=== PATIENT | female | born 1955 | race Caucasian/White ===

== ENCOUNTER → 2016-12-13 | Outpatient (CLI) | payer BC ==
--- NOTE | 2016-12-14 09:08 | MAMMOGRAPHY REPORT ---
BILATERAL DIGITAL SCREENING MAMMOGRAM TOMOSYNTHESIS WITH CAD: 12/13/2016 CLINICAL HISTORY: Routine screening. Patient has no complaints. TECHNIQUE: Breast tomosynthesis in addition to standard 2D mammography was performed. Current study was also evaluated with a Computer Aided Detection (CAD) system. COMPARISON: Comparison is made to exams dated: 10/06/2015 mammogram, 07/05/2012 mammogram, 12/22/2009 m ammogram, 05/10/2006 mammogram, and 12/10/2000 mammogram - [facility]. BREAST COMPOSITION: The tissue of both breasts is heterogeneously dense, which may obscure small mas ses. FINDINGS: The parenchymal pattern is similar to prior exams. There are a few benign-appearing micro calcifications and minimal vascular calcification in the breasts. No developing mass, architectural distortion or cluster of suspicious microcalcifications is seen in either breast. IMPRESSION: ACR BI-RADS CATEGORY 2: BENIGN There is no mammographic evidence of malignancy. A 1 year screening mammogram is recommended. The pa tient will receive written notification of the results. Approximately 10% of breast cancers are not detected with mammography. A negative mammographic report should not delay biopsy if a clinically suggestive mass is present. Katherine Walker M.D. ay/:12/13/2016 17:38:04 Steward/Stewardess Lounge: Lilia Jeter, [facility] letter sent: Normal 1/2 BI-RADS Code: ACR BI-RADS Category 2: Benign
== END | disposition home or self-care (01) ==
LOC: C.MAMM 16:35
PROVIDERS: ATTEND Family Medicine
DX: Z12.31 Encounter for screening mammogram for malignant neoplasm of breast (principal)

== ENCOUNTER 2017-11-10 03:10 | Inpatient (IN) | payer BC, OTHER ==
[~2017-11-10] VITALS: Ht 165.1 cm; Wt 72.2 kg
[2017-11-10] VITALS (10 sets, daily range): BP systolic 112–153; BP diastolic 66–82; PULSE 83–103; TEMP 36.7–37.2; O2SAT 91–98; BMI 25.1
[2017-11-10] MEDS ORDERED: SODIUM CHLORIDE 0.9% 1000ML 1,000 ML IV STA (03:12)
[2017-11-10 03:34] LABS: EOS % 0.5 %; EOS ABS # 0.03 K/uL (0-0.5); HEMATOCRIT 37.5 % (37-47); HEMOGLOBIN 13.2 g/dL (12.0-16.0); IG# 0.01 K/uL (0.00-0.02); LYMPH % 11.1 %; LYMPH ABS # 0.68 K/uL (1.2-3.4); MEAN CELL VOLUME 92.8 fL (80-100); MEAN CORPUSCULAR HEMOGLOBIN 32.7 pg (25-34); MEAN CORPUSCULAR HGB CONC 35.2 g/dl (32-36); MEAN PLATELET VOLUME 9.6 fL (7.4-10.4); MONO % 2.6 %; MONO ABS # 0.16 K/uL (0.11-0.59); NEUT % 85.6 %; NEUT ABS # 5.25 K/uL (1.4-6.5); PLATELET COUNT 206 K/uL (130-400); RED CELL DISTRIBUTION WIDTH CV 12.5 % (11.5-14.5); RED CELL DISTRIBUTION WIDTH SD 42.4 fL (36.4-46.3); WHITE BLOOD COUNT 6.13 K/uL (4.8-10.8)
[2017-11-10 04:34] LABS: ALBUMIN 3.4 gm/dl (3.4-5.0); ALKALINE PHOSPHATASE 64 U/L (45-117); ALT/SGPT 32 U/L (12-78); AST/SGOT 24 U/L (15-37); BLOOD UREA NITROGEN 9 mg/dl (7-18); CALCIUM 8.5 mg/dl (8.5-10.1); CARBON DIOXIDE 20 mmol/L (21-32); CREATININE 0.71 mg/dl (0.60-1.20); GLUCOSE 107 mg/dl (70-99); LIPASE 247 U/L (73-393); POTASSIUM 3.1 mmol/L (3.5-5.1); SODIUM 133 mmol/L (136-145); TOTAL PROTEIN 6.9 gm/dl (6.4-8.2)
[2017-11-10] MEDS ORDERED: POTASSIUM CHLORIDE 10 MEQ TABCR PO STA (04:47)
[2017-11-10] MEDS ORDERED: MAGNESIUM SULFATE 1GM / D5W 1 GM BAG IV STA (04:47)
[2017-11-10] MEDS ORDERED: NURSING VERBAL MED ORDER ONE ×4 (05:15→14:30)
[2017-11-10] MEDS ORDERED: MoRPHine SULFATE 4 MG/ML 1 ML CARP\\VIAL ONE (05:16)
[2017-11-10] MEDS ORDERED: MoRPHine SULFATE 4 MG/ML 1 ML CARP\\VIAL IV STA (06:16)
[2017-11-10] MEDS ORDERED: ZOLPIDEM TARTRATE 5 MG TAB PO PRN (06:30)
[2017-11-10] MEDS ORDERED: ACETAMINOPHEN 325 MG TAB PO PRN (06:30)
--- NOTE | 2017-11-10 06:37 | History and Physical ---
History & Physical Date & Time of Service: November 10, 2017 at 06:31 Chief Complaint: Abdominal Pain Primary Care Physician: No Doctor, Assigned History of Present Illness Source: patient The patient is a 62 year old female who presented to ED with complaints of sudden onset of right lower quadrant pain. The pain did not radiate and was improved after morphine injection. She was sitting in bed when the pain began without nausea or vomiting. Never had a colonoscopy. She denies chest pain, dyspnea, fever, chills, vomiting, diarrhea, back pain, flank pain, urinary symptoms, vaginal itching or discharge. No problems with her bowels. No history of kidney stones. No drug use. Patient does not see a doctor on a regular basis. A CT scan shows a likely cecal volvulus. Past Medical/Surgical History Medical Problems: (1) Cecal volvulus Social History Smoking Status: Never Smoker Smokeless Tobacco Use: No Alcohol Use: socially Drug Use: none Occupational Status: employed Allergies Coded Allergies: No Known Allergies (Unverified , 11/10/17) Home Medications No Active Prescriptions or Reported Meds Review of Systems Constitutional: No fever, No chills, No sweats, No weight loss, No fatigue Eyes: No worsening of vision, No redness, No diplopia ENT: No hearing loss, No sore throat, No trouble swallowing Respiratory: No cough, No sputum, No shortness of breath Cardiovascular: No chest pain, No edema, No palpitations Abdomen: + pain, No nausea, No vomiting, No diarrhea, No constipation Musculoskeletal: No joint pain, No muscle pain, No swelling, No calf pain Genitourinary - Female: No dysuria Neurologic: No memory loss, No numbness/tingling, No balance problems Psychiatric: No depression symptoms, No anxiety Endocrine: No fatigue, No excessive urination Hematologic / Lymphatic: No abnormal bleeding/bruising, No swollen lymph nodes Integumentary: No rash, No new/changing skin lesions, No bleeding Allergic / Immunologic: No environmental allergies, No food allergies Physical Exam Vital Signs Date Time Temp Pulse Resp B/P (MAP) Pulse Ox O2 Delivery O2 Flow Rate FiO2 11/10/17 05:12 88 22 93 Room Air 11/10/17 05:07 131/71 11/10/17 04:05 75 19 96 Room Air 11/10/17 04:01 85 24 124/73 98 Room Air 11/10/17 03:50 86 18 11/10/17 03:45 80 19 11/10/17 03:40 83 21 11/10/17 03:40 85 11/10/17 03:27 Room Air 11/10/17 03:27 37.2 82 16 141/80 100 Room Air 11/10/17 03:16 141/80 98 Room Air General Appearance: WD/WN, no apparent distress Head: normocephalic, atraumatic Eyes: normal inspection, PERRL, EOMI, sclerae normal ENT: normal ENT inspection Neck: supple, no adenopathy, trachea midline Respiratory/Chest: chest non-tender, lungs clear Cardiovascular: regular rate, rhythm, no gallop, no murmur Abdomen/GI: normal bowel sounds, soft, + tenderness, + distended Genitourinary - Female: external genitalia normal Back: normal inspection, no CVA tenderness, normal range of motion Extremities/Musculoskelatal: normal inspection, no pedal edema, non-tender Neurologic/Psych: no motor/sensory deficits, alert, oriented x 3 Skin: normal color, warm/dry, no rash Lymphatic: no adenopathy Diagnostics Laboratory Results Results Past 24 Hours Test 11/10/17 03:29 11/10/17 03:30 11/10/17 03:40 11/10/17 05:35 Range/Units Ethyl Alcohol mg/dL 101.0 0-3 mg/dl White Blood Count 6.13 4.8-10.8 K/uL Red Blood Count 4.04 4.2-5.4 M/uL Hemoglobin 13.2 12.0-16.0 g/dL Hematocrit 37.5 37-47 % Mean Corpuscular Volume 92.8 80-100 fL Mean Corpuscular Hemoglobin 32.7 25-34 pg Mean Corpuscular Hemoglobin Concent 35.2 32-36 g/dl Platelet Count 206 130-400 K/uL Mean Platelet Volume 9.6 7.4-10.4 fL Neutrophils (%) (Auto) 85.6 % Lymphocytes (%) (Auto) 11.1 % Monocytes (%) (Auto) 2.6 % Eosinophils (%) (Auto) 0.5 % Basophils (%) (Auto) 0.0 % Neutrophils # (Auto) 5.25 1.4-6.5 K/uL Lymphocytes # (Auto) 0.68 1.2-3.4 K/uL Monocytes # (Auto) 0.16 0.11-0.59 K/uL Eosinophils # (Auto) 0.03 0-0.5 K/uL Basophils # (Auto) 0.00 0-0.2 K/uL RDW Standard Deviation 42.4 36.4-46.3 fL RDW Coefficient of Variation 12.5 11.5-14.5 % Immature Granulocyte % (Auto) 0.2 % Immature Granulocyte # (Auto) 0.01 0.00-0.02 K/uL Sodium Level 133 136-145 mmol/L Potassium Level 3.1 3.5-5.1 mmol/L Chloride Level 101 98-107 mmol/L Carbon Dioxide Level 20 21-32 mmol/L Anion Gap 12.0 3-11 mmol/L Blood Urea Nitrogen 9 7-18 mg/dl Creatinine 0.71 0.60-1.20 mg/dl Est Creatinine Clear Calc Drug Dose 79.7 ml/min Estimated GFR () 104.3 Estimated GFR (Non- 90.0 BUN/Creatinine Ratio 13.3 10-20 Random Glucose 107 70-99 mg/dl Calcium Level 8.5 8.5-10.1 mg/dl Magnesium Level 1.6 1.8-2.4 mg/dl Total Bilirubin 0.2 0.2-1 mg/dl Direct Bilirubin < 0.1 0-0.2 mg/dl Aspartate Amino Transf (AST/SGOT) 24 15-37 U/L Alanine Aminotransferase (ALT/SGPT) 32 12-78 U/L Alkaline Phosphatase 64 45-117 U/L Total Protein 6.9 6.4-8.2 gm/dl Albumin 3.4 3.4-5.0 gm/dl Lipase 247 73-393 U/L Urine Color YELLOW Urine Appearance CLEAR CLEAR Urine pH 5.5 4.5-7.5 Urine Specific [place] 1.015 1.000-1.030 Urine Protein NEG NEG Urine Glucose (UA) NEG NEG Urine Ketones TRACE NEG Urine Occult Blood 1+ NEG Urine Nitrite NEG NEG Urine Bilirubin NEG NEG Urine Urobilinogen NEG NEG Urine Leukocyte Esterase NEG NEG Urine WBC (Auto) 1-5 0-5 /hpf Urine RBC (Auto) 0-4 0-4 /hpf Urine Hyaline Casts (Auto) 1-5 0-5 /lpf Urine Epithelial Cells (Auto) 5-10 0-5 /lpf Urine Bacteria (Auto) NEG NEG Bedside Lactic Acid Venous 1.72 0.90-1.70 mmol/L Impression Assessment and Plan Cecal volvulus -IVF -IV abx -to OR for right colectomy SCDs Protonix ASA Classification: ASA Class II Resuscitation Status VTE Prophylaxis Will order VTE Prophylaxis: Yes Social Service Consult None Apply
--- NOTE | 2017-11-10 06:42 | EMERGENCY ROOM VISIT NOTE ---
History First contact with patient: 03:12 Chief Complaint: ABDOMINAL PAIN Stated Complaint: ABDOMINAL PAIN Nursing Triage Summary: woke with severe, sudden onset abd pain, resolved after medic admin morphine. no pmhx History of Present Illness The patient is a 62 year old female who presents to the Emergency Room with complaints of sudden onset of right lower quadrant pain described as severe, 8 out of 10 that is now resolved after receiving 8 of morphine IV and 4 Zofran by EMS in route. Pain did not radiate. Patient states she was sitting in bed when the symptoms started. Patient states she has had 4 beers tonight. No history of similar symptoms in the past. No colonoscopy. Patient denies chest pain, dyspnea, fever, chills, vomiting, diarrhea, back pain, flank pain, urinary symptoms, vaginal itching or discharge. No problems with her bowels. No history of kidney stones. No drug use. Patient does not see a doctor on a regular basis. Review of Systems An 10 system review of systems was completed with positives and pertinent negatives listed in the HPI. Past Medical/Surgical History Medical Problems: (1) Cecal volvulus C section Social History Smoking Status: Never Smoker Smokeless Tobacco Use: No Alcohol Use: occasionally Drug Use: none Occupation Status: employed Current/Historical Medications No Active Prescriptions or Reported Meds Physical Exam Vital Signs Date Time Temp Pulse Resp B/P (MAP) Pulse Ox O2 Delivery O2 Flow Rate FiO2 11/10/17 06:35 88 16 114/68 95 Room Air 11/10/17 05:12 88 22 93 Room Air 11/10/17 05:07 131/71 11/10/17 04:05 75 19 96 Room Air 11/10/17 04:01 85 24 124/73 98 Room Air 11/10/17 03:50 86 18 11/10/17 03:45 80 19 11/10/17 03:40 83 21 11/10/17 03:40 85 11/10/17 03:27 Room Air 11/10/17 03:27 37.2 82 16 141/80 100 Room Air 11/10/17 03:16 141/80 98 Room Air Physical Exam VITALS: Vitals are noted on the nurse's note and reviewed by myself. Vital signs hypertensive. GENERAL: Pleasant female, in no acute distress, nondiaphoretic, well-developed well-nourished. SKIN: The skin was without rashes, erythema, edema, or bruising. There is no tenting of the skin. Capillary reflex less than 2 seconds. HEAD: Normocephalic atraumatic. EARS: External auditory canals clear, tympanic membranes pearly culp without erythema or effusion bilaterally. EYES: Pupils equal round and reactive to light and accommodation. Conjunctivae without injection, sclerae without icterus. Extraocular movements intact. NOSE: Patent, turbinates without inflammation or discharge. MOUTH: Mucous membranes moist. Pharynx without erythema or exudate. Uvula midline. Airway patent. Tongue does not deviate. NECK: Supple without nuchal rigidity. No lymphadenopathy. No thyromegaly. Cervical spine is nontender. No JVD. HEART: Regular rate and rhythm without murmurs gallops or rubs. LUNGS: Clear to auscultation bilaterally without wheezes, rales or rhonchi. No retractions or accessory muscle use. ABDOMEN: Positive bowel sounds x 4. Normal tympanic percussion. Soft, tender to palpation right lower quadrant, without masses or organomegaly. Lowery sign negative. No guarding or rebound tenderness. No CVA tenderness MUSCULOSKELETAL: No muscle atrophy, erythema, or edema noted. NEURO: Patient was alert and oriented to person place and time. Normal sensation to light and sharp touch. No focal neurological deficits. Medical Decision & Procedures Laboratory Results 11/10/17 03:30 Red Blood Count 4.04, Mean Corpuscular Volume 92.8, Mean Corpuscular Hemoglobin 32.7, Mean Corpuscular Hemoglobin Concent 35.2, Mean Platelet Volume 9.6, Neutrophils (%) (Auto) 85.6, Lymphocytes (%) (Auto) 11.1, Monocytes (%) (Auto) 2.6, Eosinophils (%) (Auto) 0.5, Basophils (%) (Auto) 0.0, Neutrophils # (Auto) 5.25, Lymphocytes # (Auto) 0.68, Monocytes # (Auto) 0.16, Eosinophils # (Auto) 0.03, Basophils # (Auto) 0.00 11/10/17 03:30 Test 11/10/17 03:29 11/10/17 03:30 11/10/17 03:40 11/10/17 05:35 Ethyl Alcohol mg/dL 101.0 mg/dl (0-3) White Blood Count 6.13 K/uL (4.8-10.8) Red Blood Count 4.04 M/uL (4.2-5.4) Hemoglobin 13.2 g/dL (12.0-16.0) Hematocrit 37.5 % (37-47) Mean Corpuscular Volume 92.8 fL (80-100) Mean Corpuscular Hemoglobin 32.7 pg (25-34) Mean Corpuscular Hemoglobin Concent 35.2 g/dl (32-36) Platelet Count 206 K/uL (130-400) Mean Platelet Volume 9.6 fL (7.4-10.4) Neutrophils (%) (Auto) 85.6 % Lymphocytes (%) (Auto) 11.1 % Monocytes (%) (Auto) 2.6 % Eosinophils (%) (Auto) 0.5 % Basophils (%) (Auto) 0.0 % Neutrophils # (Auto) 5.25 K/uL (1.4-6.5) Lymphocytes # (Auto) 0.68 K/uL (1.2-3.4) Monocytes # (Auto) 0.16 K/uL (0.11-0.59) Eosinophils # (Auto) 0.03 K/uL (0-0.5) Basophils # (Auto) 0.00 K/uL (0-0.2) RDW Standard Deviation 42.4 fL (36.4-46.3) RDW Coefficient of Variation 12.5 % (11.5-14.5) Immature Granulocyte % (Auto) 0.2 % Immature Granulocyte # (Auto) 0.01 K/uL (0.00-0.02) Anion Gap 12.0 mmol/L (3-11) Est Creatinine Clear Calc Drug Dose 79.7 ml/min Estimated GFR () 104.3 Estimated GFR (Non- 90.0 BUN/Creatinine Ratio 13.3 (10-20) Calcium Level 8.5 mg/dl (8.5-10.1) Magnesium Level 1.6 mg/dl (1.8-2.4) Total Bilirubin 0.2 mg/dl (0.2-1) Direct Bilirubin < 0.1 mg/dl (0-0.2) Aspartate Amino Transf (AST/SGOT) 24 U/L (15-37) Alanine Aminotransferase (ALT/SGPT) 32 U/L (12-78) Alkaline Phosphatase 64 U/L (45-117) Total Protein 6.9 gm/dl (6.4-8.2) Albumin 3.4 gm/dl (3.4-5.0) Lipase 247 U/L (73-393) Urine Color YELLOW Urine Appearance CLEAR (CLEAR) Urine pH 5.5 (4.5-7.5) Urine Specific [place] 1.015 (1.000-1.030) Urine Protein NEG (NEG) Urine Glucose (UA) NEG (NEG) Urine Ketones TRACE (NEG) Urine Occult Blood 1+ (NEG) Urine Nitrite NEG (NEG) Urine Bilirubin NEG (NEG) Urine Urobilinogen NEG (NEG) Urine Leukocyte Esterase NEG (NEG) Urine WBC (Auto) 1-5 /hpf (0-5) Urine RBC (Auto) 0-4 /hpf (0-4) Urine Hyaline Casts (Auto) 1-5 /lpf (0-5) Urine Epithelial Cells (Auto) 5-10 /lpf (0-5) Urine Bacteria (Auto) NEG (NEG) Bedside Lactic Acid Venous 1.72 mmol/L (0.90-1.70) Medications Administered Medications (Trade) Dose Ordered Sig/Sheila Route Start Time Stop Time Status Last Admin Dose Admin Sodium Chloride 1,000 ml @ 999 mls/hr Q1H1M STAT IV 11/10/17 03:12 11/10/17 04:12 DC 11/10/17 03:35 999 MLS/HR Potassium Chloride (Klor-Con M10) 40 meq NOW STAT PO 11/10/17 04:47 11/10/17 04:48 DC 11/10/17 05:20 40 MEQ Magnesium Sulfate (Magnesium Sulfate 1gm / D5W) 1 gm NOW STAT IV 11/10/17 04:47 11/10/17 04:48 DC 11/10/17 05:21 1 GM Morphine Sulfate (MoRPHine SULFATE INJ) 4 mg STK-MED ONCE .ROUTE 11/10/17 05:16 11/10/17 05:17 DC 11/10/17 05:20 4 MG ED Course Prior records/ancillary studies reviewed. Triage Nursing notes reviewed. Additional history obtained from EMS. The patient's history was concerning for abdominal pain. Differential diagnosis: Etiologies such as appendicitis, diverticulitis, PUD, biliary pathology, UTI, pancreatitis, obstruction, mesenteric ischemia, aortic pathology, infections, inflammatory bowel disease, renal colic, as well as others were entertained. Physical examination findings: As above. ER treatment provided: IV fluids, EMS gave morphine and Zofran On reassessment the patient felt better. Diagnostics interpreted by me: The labs revealed lactic 1.7 No leukocytosis, stable H&H Imaging studies: CT ABDOMEN & PELVIS With Contrast: There are two 6 mm subpleural groundglass nodules in the left lower lobe. Consider follow-up in 6-12 months. Small volume free fluid in the pelvic cul-de-sac.. Ascending colon is significantly dilated with fluid and gas and located in the left abdomen. There is a mesenteric swirl sign in the right lower quadrant. Overall, findings are concerning for cecal volvulus. Recommend surgical consultation. No evidence of pneumoperitoneum or pneumatosis. Radiologist: Eligio Hernandez DO Study ready at 05:08 and initial results transmitted Consultation: A consultation was placed with the surgeon, Dr. Miller. The case was discussed and diagnostics were reviewed. The patient was evaluated in the ER for further treatment. Exam and history seem consistent with cecal volvulus. Patient will be evaluated by surgery. She was placed n.p.o. Patient is agreeable to treatment plan of admission and evaluation by surgery. Patient was afebrile nontoxic. No leukocytosis. She was well-appearing. By the evaluation outlined above emergent etiologies such as appendicitis, diverticulitis, PUD, biliary pathology , UTI, pancreatitis, mesenteric ischemia, aortic pathology, infections, inflammatory bowel disease, renal colic, as well as others were deemed relatively unlikely. The pt informed about the findings as listed above. All questions were answered and pleased with the treatment. Case reviewed with my attending The chart was completed utilizing [employer] Speech voice recognition software. Grammatical errors, random word insertions, pronoun errors, and incomplete sentences are an occassional consequence of this system due to software limitations, ambient noise, and hardware issues. Any formal questions or concerns about the content, text, or information contained within the body of this dictation should be directly addressed to the physician child care assistant for clarification. Medical Decision As above Medication Reconcilliation Current Medication List: was personally reviewed by me Blood Pressure Screening Patient's blood pressure: Elevated blood pressure Blood pressure disposition: Elevated BP felt to be situational Impression Primary Impression: Cecal volvulus Departure Information Dispostion Being Evaluated By Surgeon Condition FAIR Prescriptions No Active Prescriptions or Reported Meds Referrals No Doctor, Assigned (PCP) Patient Instructions [facility]
[2017-11-10] MEDS: ONDANSETRON INJ 2 MG/ML 2 ML VIAL IV PRN (07:52)
[2017-11-10] MEDS ORDERED: MoRPHine SULFATE 4 MG/ML 1 ML CARP\\VIAL IV PRN (08:15)
--- NOTE | 2017-11-10 08:33 | DIAGNOSTIC IMAGING REPORT ---
ABDOMEN AND PELVIS CT WITH IV CONTRAST CT DOSE: 373.61 mGy.cm HISTORY: Right-sided abdominal pain. TECHNIQUE: Multiaxial CT images of the abdomen and pelvis were performed following the use of intravenous contrast. A dose lowering technique was utilized adhering to the principles of ALARA. COMPARISON STUDY: None. FINDINGS: There are 2, 6 mm groundglass nodule seen within the left lower lobe on images 7 and 11. 4 mm subpleural nodule within the right lower lobe on image 7. No pneumoperitoneum. No pneumatosis. No fractures within the visualized osseous structures. The liver, gallbladder, spleen, adrenal glands, pancreas, left kidney are unremarkable. Subcentimeter hypodense lesion within the upper pole the right kidney is too small to characterize. No hydronephrosis. Thickening of the gastric antrum may be due to decompression from the mass effect from the adjacent distended cecum. Normal bladder. Small amount of pelvic fluid. No dilated loops of small bowel identified. The majority of the small and large bowel loops are decompressed. However, the cecum is distended and filled with gas and fluid located within the left side the abdomen. The cecum measures up to 7.8 cm in diameter. There is focal transition point and a whirled sign within the mesenteric fat within the right lower quadrant on images 52 through 55. This is located at the proximal ascending colon and is consistent with a cecal volvulus. IMPRESSION: 1. Above findings consistent with a cecal volvulus. Immediate surgical consultation is recommended for decompression. 2. Small amount of pelvic fluid which may be reactive. 3. There are 2, 6 mm groundglass nodules within the left lung base. Follow-up chest CT in 6 months is recommended to ensure stability/resolution. Electronically signed by: Bruce Dalton M.D. 11/10/2017 8:32 AM Dictated Date/Time: 11/10/2017 8:25 AM
[2017-11-10] MEDS ORDERED: PROPOFOL IV EMULSION 10 MG/ML 20 ML VIAL ONE (09:12)
[2017-11-10] MEDS ORDERED: MIDAZOLAM HCL 1 MG/ML 2ML VIAL ONE (09:12)
[2017-11-10] MEDS ORDERED: DEXAMETHASONE SOD INJ 4 MG/ML VIAL ONE (09:12)
[2017-11-10] MEDS ORDERED: FENTANYL CITRATE INJ 50 MCG/1 ML 2 ML VIAL ONE ×3 (09:12→11:50)
[2017-11-10] MEDS ORDERED: ONDANSETRON INJ 2 MG/ML 2 ML VIAL ONE ×2 (09:12→11:10)
[2017-11-10] MEDS ORDERED: GLYCOPYRROLATE INJ 0.2 MG/ML VIAL ONE ×2 (09:12→10:35)
[2017-11-10] MEDS ORDERED: ROCURONIUM BROMIDE 10 MG/ML 5 ML VIAL ONE (09:12)
[2017-11-10] MEDS ORDERED: LIDOCAINE HCL 2% 2 ML VIAL (20MG/ML) ONE (09:12)
[2017-11-10] MEDS ORDERED: NEOSTIGMINE METHYLSULFATE 5 MG/5 ML SYR ONE (09:12)
[2017-11-10] MEDS: AMPICILLIN/SULBACTAM SOD INJ 3,000 MG in SODIUM CHLORIDE 0.9% 100ML 100 ML IV SCH ×3 (09:16→20:33)
[2017-11-10] MEDS ORDERED: PROMETHAZINE HCL INJ 6.25 MG in SODIUM CHLORIDE 0.9% 50ML 50 ML IV PRN (10:15)
[2017-11-10] MEDS ORDERED: ONDANSETRON INJ 2 MG/ML 2 ML VIAL IV PRN (10:15)
[2017-11-10] MEDS ORDERED: KETOROLAC TROMETHAMINE 30 MG/ML VIAL IV. PRN (10:15)
[2017-11-10] MEDS ORDERED: ATROPINE SULFATE 0.1 MG/ML 5ML SYR IV PRN (10:15)
[2017-11-10] MEDS ORDERED: BACITRACIN 50000 UNIT VIAL ONE (10:37)
[2017-11-10] MEDS: SODIUM CHLORIDE 0.9% 1000ML 1,000 ML IV SCH (10:49)
--- NOTE | 2017-11-10 10:49 | [facility] Post Operative Brief Note ---
Immediate Operative Summary Operative Date November 10, 2017. Pre-Operative Diagnosis Cecal volvulus Post-Operative Diagnosis Cecal volvulus Procedure(s) Performed Exploratory laparotomy with cecum and TI resection Surgeon Dr. Rupert Perez Inker Surgeon(s) None Estimated Blood Loss 50ml Findings Consistent with Post-Op Diagnosis Specimens A: Cecum and terminal ileum Drains None Anesthesia Type General Complication(s) none Disposition Accompanied Pt To Recover: no Disposition: Recovery Room / PACU
[2017-11-10] MEDS ORDERED: NALOXONE HCL 0.4 MG/1 ML VIAL/CARP IV PRN (11:00)
[2017-11-10] MEDS: PANTOprazole INJ 40 MG in SYRINGE 0 ML IV SCH ×2 (11:00→14:17)
[2017-11-10] MEDS ORDERED: HYDROmorphone INJ 2 MG/ML SYR/VIAL ONE ×2 (11:09→12:01)
[2017-11-10] MEDS ORDERED: KETOROLAC TROMETHAMINE 30 MG/ML VIAL ONE (11:09)
[2017-11-10] MEDS: HYDROmorphone INJ 2 MG/ML SYR/VIAL IV PRN ×8 (11:20→12:27)
--- NOTE | 2017-11-10 11:47 | OPERATIVE REPORT ---
DATE OF OPERATION: 11/10/2017 PREOPERATIVE DIAGNOSIS: Cecal volvulus. POSTOPERATIVE DIAGNOSIS: Cecal volvulus. PROCEDURE PERFORMED: Exploratory laparotomy with resection of distal right colon and terminal ileum. ANESTHESIA: General endotracheal. SURGEON: Dr. Rupert Perez. JUNIOR STAFF ACCOUNTANT: None. ESTIMATED BLOOD LOSS: 50 mL FINDINGS: There was a large cecal volvulus with ischemic, but not infarcted cecum. SPECIMEN: Cecum and terminal ileum. DRAINS: None. COMPLICATIONS: None. INDICATION FOR PROCEDURE: This is a 62-year-old female who was seen early this morning in the ER with complaints of acute abdominal pain, which began a few hours earlier. She had a CT scan, which showed obvious cecal volvulus. She had received pain medication, but was lap machine tender on exam and therefore it was recommended that we proceed with exploration and resection of her volvulized cecum. We went over the risks of temporary ostomy, bleeding, wound problems, possible reoperation and she understands all this and wished to proceed. DESCRIPTION OF PROCEDURE: The patient was taken to the OR after she received antibiotics and the sufficient resuscitation. She was hemodynamically stable and was found early in the course of her disease process. She underwent excellent general endotracheal anesthesia. Her abdomen was prepped and draped in normal sterile fashion. Midline incision was made from just below her xiphoid down to around her umbilicus. Dissection was taken down to identify anterior fascia. Fascia was incised in the midline. This was extended superiorly and inferiorly. A Aden retractor was placed. Exploration was done. There was an obvious large dilated cecal volvulus. This was detorsed and laid into the open wound. The bowel itself was not infarcted, but did appear ischemic. Terminal ileum was normal and the distal right colon was also fairly normal caliber. Once this was done, the rest of the abdomen was explored. No other abnormalities were noted. Harmonic scalpel was used to free up the white line of [place] laterally. This helped mobilize the right colon. Once this was done, a ANDREA stapler was used to transect the distal terminal ileum and the distal right colon. Once this was done, the mesentery was taken down between clamps and 0 silk ties. This removed the volvulized cecum and portion of the terminal ileum. This was sent for pathologic evaluation. The colon and the small bowel were then placed side by side. A suture was placed proximally. An enterotomy and a colotomy were made and a ANDREA 80 stapler was placed and [id number] anastomosis was made. There was no spillage of enteric contents. Once this was done, #2 silk sutures were placed on either side of the defect and a ANDREA stapler was placed across the defect closing the defect made between the 2 bowels, which were anastomosed. This staple line was reinforced with interrupted lemberted silk sutures. The window between the bowel was also closed with interrupted silk sutures. There was a good wide patent anastomosis. The abdomen was then irrigated out with saline and suctioned clear. The anastomosis was placed into the abdominal cavity. The omentum was placed over this. A #1 PDS was used to close the skin. The subQ tissues were irrigated with antibiotic irrigation and closed with cheo. Sterile dressing was applied. She had a Wolf and NG tube placed intraoperatively. She tolerated the procedure well without complications, sent to post-recovery for a period of observation and sent to the floor for the rest of her care. I attest to the content of the Intraoperative Record and any orders documented therein. Any exception s are noted below.
[2017-11-10] MEDS ORDERED: FENTANYL CITRATE INJ 50 MCG/1 ML 2 ML VIAL IV PRN (12:15)
--- NOTE | 2017-11-10 12:16 | Anesthesiology Progress Note ---
Anesthesia Post Op Note Date & Time November 10, 2017 at 12:16 Vital Signs Vital Signs Past 12 Hours Date Time Temp Pulse Resp B/P (MAP) Pulse Ox O2 Delivery O2 Flow Rate FiO2 11/10/17 11:02 36.4 78 16 146/79 96 Oxymask 10 11/10/17 07:45 Room Air 11/10/17 07:39 36.7 92 12 127/72 (90) 97 Room Air 11/10/17 07:09 83 16 124/65 94 Room Air 11/10/17 06:35 88 16 114/68 95 Room Air 11/10/17 05:12 88 22 93 Room Air 11/10/17 05:07 131/71 11/10/17 04:05 75 19 96 Room Air 11/10/17 04:01 85 24 124/73 98 Room Air 11/10/17 03:50 86 18 11/10/17 03:45 80 19 11/10/17 03:40 83 21 11/10/17 03:40 85 11/10/17 03:27 Room Air 11/10/17 03:27 37.2 82 16 141/80 100 Room Air 11/10/17 03:16 141/80 98 Room Air Notes Mental Status: alert / awake / arousable, participated in evaluation Pt Amnestic to Procedure: Yes Nausea / Vomiting: adequately controlled Pain: adequately controlled Airway Patency, RR, SpO2: stable & adequate BP & HR: stable & adequate Hydration State: stable & adequate Anesthetic Complications: no major complications apparent
[2017-11-10] MEDS: MoRPHine SULFATE 1 MG/ML 50 ML PCA CASS IV PRN ×3 (12:28→19:00)
[2017-11-10] MEDS: LACTATED RINGER'S 1000ML 1,000 ML IV SCH ×2 (14:14→22:13)
[2017-11-11] MEDS: AMPICILLIN/SULBACTAM SOD INJ 3,000 MG in SODIUM CHLORIDE 0.9% 100ML 100 ML IV SCH ×4 (01:47→20:11)
[2017-11-11] MEDS: ONDANSETRON INJ 2 MG/ML 2 ML VIAL IV PRN ×3 (02:04→16:38)
[2017-11-11 03:34] VITALS: BP 142/79; PULSE 85; TEMP 37.1; O2SAT 95
[2017-11-11] MEDS: LACTATED RINGER'S 1000ML 1,000 ML IV SCH ×3 (06:04→23:11)
[2017-11-11 06:51] LABS: HEMOGLOBIN 11.9 g/dL (12.0-16.0); IG# 0.02 K/uL (0.00-0.02); LYMPH % 3.6 %; LYMPH ABS # 0.35 K/uL (1.2-3.4); MEAN CELL VOLUME 93.4 fL (80-100); MEAN CORPUSCULAR HEMOGLOBIN 32.7 pg (25-34); MEAN PLATELET VOLUME 8.9 fL (7.4-10.4); MONO % 6.5 %; MONO ABS # 0.63 K/uL (0.11-0.59); NEUT % 89.7 %; NEUT ABS # 8.69 K/uL (1.4-6.5); PLATELET COUNT 164 K/uL (130-400); RED CELL DISTRIBUTION WIDTH CV 12.4 % (11.5-14.5); RED CELL DISTRIBUTION WIDTH SD 42.3 fL (36.4-46.3); WHITE BLOOD COUNT 9.69 K/uL (4.8-10.8)
[2017-11-11] MEDS: MoRPHine SULFATE 1 MG/ML 50 ML PCA CASS IV PRN ×3 (06:59→22:47)
[2017-11-11 07:21] VITALS: BP 143/78; PULSE 78; TEMP 37.1; O2SAT 94
[2017-11-11 07:25] LABS: CALCIUM 8.5 mg/dl (8.5-10.1); CREATININE 0.65 mg/dl (0.60-1.20)
[2017-11-11 08:00] VITALS: O2SAT 93
[2017-11-11] MEDS: SODIUM CHLORIDE 0.9% 1000ML 1,000 ML IV SCH (10:49)
[2017-11-11] MEDS: PANTOprazole INJ 40 MG in SYRINGE 0 ML IV SCH (10:58)
--- NOTE | 2017-11-11 11:00 | Surgery Progress Note ---
Surgery Progress Note Date of Service November 11, 2017. Subjective Post OP Day: 1 + feeling well, + pain controlled, + diet (npo), No bowel movement, No flatus, No nausea, No vomiting Objective Vital Signs: Date Time Temp Pulse Resp B/P (MAP) Pulse Ox O2 Delivery O2 Flow Rate FiO2 11/11/17 07:21 37.1 78 18 143/78 (99) 94 Room Air 11/11/17 03:34 37.1 85 16 142/79 (100) 95 Room Air 11/10/17 23:48 37.2 83 18 133/66 (88) 92 Room Air 11/10/17 19:43 36.9 84 17 153/79 (103) 94 Room Air 11/10/17 19:15 Room Air 11/10/17 16:15 37.0 91 16 132/72 (92) 97 Nasal Cannula 3.0 11/10/17 15:15 Nasal Cannula 3.0 95 11/10/17 15:12 36.9 92 16 130/74 (92) 91 Nasal Cannula 3.0 11/10/17 14:10 Nasal Cannula 11/10/17 14:06 36.8 103 14 138/73 (94) 96 Nasal Cannula 3.0 11/10/17 13:54 98 Nasal Cannula 3.0 11/10/17 13:41 92 18 112/71 (85) 96 2.0 11/10/17 13:15 37.0 90 14 133/68 (89) 98 Nasal Cannula 3.0 11/10/17 12:55 36.6 98 Nasal Cannula 4 11/10/17 12:53 89 15 11/10/17 12:53 90 15 97 11/10/17 12:51 124/69 11/10/17 12:48 91 16 11/10/17 12:48 84 16 98 11/10/17 12:46 142/67 11/10/17 12:43 102 18 95 11/10/17 12:43 99 18 11/10/17 12:41 124/68 11/10/17 12:38 78 24 95 11/10/17 12:38 78 24 11/10/17 12:37 103 14 11/10/17 12:37 102 14 98 11/10/17 12:36 133/99 11/10/17 12:32 88 18 5/19/18 12:32 83 18 97 5//18 12:31 140/70 5/19/18 12:27 80 20 94 5//18 12:27 81 20 5//18 12:26 107/81 5/18 12:22 81 11 5//18 12:22 81 11 93 5/18 12:21 130/68 5//18 12:17 85 14 5/18 12:17 86 14 95 5/18 12:16 136/78 5/18 12:12 95 16 96 5/18 12:12 93 16 5/18 12:11 148/69 5/18 12:07 76 5/18 12:07 74 91 18 12:06 142/74 5/18 12:02 78 97 11/10/18 12:02 78 11/10/18 12:01 151/73 5/18 11:57 87 5/18 11:57 88 98 5/18 11:56 141/73 5/18 11:52 80 18 97 5/18 11:52 82 18 5//18 11:51 132/65 5/18 11:47 70 22 97 5//18 11:47 71 22 5//18 11:46 146/74 5/18 11:42 82 18 5//18 11:42 84 18 97 5//18 11:41 151/83 5/18 11:37 75 22 94 5/18 11:37 73 22 5//18 11:36 142/77 5/18 11:32 80 17 5/19/18 11:32 81 17 96 5/18 11:31 148/80 5/18 11:27 74 22 5/19/18 11:27 74 22 99 5//18 11:26 151/86 5/18 11:22 76 17 5/19/18 11:22 77 17 90 5//18 11:21 156/78 5/18 11:17 72 18 98 5/18 11:17 72 18 5/19/18 11:16 156/85 5/18 11:12 74 18 5//18 11:12 75 18 98 11/10/17 11:11 151/89 11/10/17 11:07 75 16 11/10/17 11:07 72 16 93 11/10/17 11:06 135/86 11/10/17 11:03 146/79 11/10/17 11:02 36.4 78 16 146/79 96 Oxymask 10 General Appearance: WD/WN, no apparent distress Head: normocephalic, atraumatic Neck: supple, trachea midline Respiratory/Chest: lungs clear Cardiovascular: regular rate, rhythm Abdomen: normal bowel sounds (few), soft, + distended, + tenderness Incision(s): clean, dry, intact Extremities: non-tender, no pedal edema Laboratory Results: Results Past 24 Hours Test 11/11/17 06:09 Range/Units White Blood Count 9.69 4.8-10.8 K/uL Red Blood Count 3.64 4.2-5.4 M/uL Hemoglobin 11.9 12.0-16.0 g/dL Hematocrit 34.0 37-47 % Mean Corpuscular Volume 93.4 80-100 fL Mean Corpuscular Hemoglobin 32.7 25-34 pg Mean Corpuscular Hemoglobin Concent 35.0 32-36 g/dl Platelet Count 164 130-400 K/uL Mean Platelet Volume 8.9 7.4-10.4 fL Neutrophils (%) (Auto) 89.7 % Lymphocytes (%) (Auto) 3.6 % Monocytes (%) (Auto) 6.5 % Eosinophils (%) (Auto) 0.0 % Basophils (%) (Auto) 0.0 % Neutrophils # (Auto) 8.69 1.4-6.5 K/uL Lymphocytes # (Auto) 0.35 1.2-3.4 K/uL Monocytes # (Auto) 0.63 0.11-0.59 K/uL Eosinophils # (Auto) 0.00 0-0.5 K/uL Basophils # (Auto) 0.00 0-0.2 K/uL RDW Standard Deviation 42.3 36.4-46.3 fL RDW Coefficient of Variation 12.4 11.5-14.5 % Immature Granulocyte % (Auto) 0.2 % Immature Granulocyte # (Auto) 0.02 0.00-0.02 K/uL Sodium Level 132 136-145 mmol/L Potassium Level 4.0 3.5-5.1 mmol/L Chloride Level 101 98-107 mmol/L Carbon Dioxide Level 25 21-32 mmol/L Anion Gap 6.0 3-11 mmol/L Blood Urea Nitrogen 7 7-18 mg/dl Creatinine 0.65 0.60-1.20 mg/dl Est Creatinine Clear Calc Drug Dose 87.1 ml/min Estimated GFR () 108.7 Estimated GFR (Non- 93.8 BUN/Creatinine Ratio 10.3 10-20 Random Glucose 121 70-99 mg/dl Calcium Level 8.5 8.5-10.1 mg/dl Assessment & Plan s/p ex lap with distal R colectomy -DC ng and ruelas -ambulate -sips -await bowel function
[2017-11-11 11:17] VITALS: BP 166/80; PULSE 83; TEMP 37.2; O2SAT 93
[2017-11-11 15:12] VITALS: BP 153/79; PULSE 95; TEMP 37.2; O2SAT 93
[2017-11-11] MEDS ORDERED: NURSING VERBAL MED ORDER ONE (16:30)
[2017-11-11] MEDS ORDERED: ONDANSETRON INJ 8 MG in DEXTROSE 5% 50ML 50 ML IV PRN (17:00)
[2017-11-11] MEDS ORDERED: ONDANSETRON INJ 2 MG/ML 2 ML VIAL IV PRN (17:00)
[2017-11-11] MEDS ORDERED: PROMETHAZINE HCL INJ 12.5 MG in SODIUM CHLORIDE 0.9% 50ML 50 ML IV PRN (17:00)
[2017-11-11 23:10] VITALS: BP 153/74; PULSE 84; TEMP 37.2; O2SAT 95
[2017-11-12] VITALS (7 sets, daily range): BP systolic 137–160; BP diastolic 67–87; PULSE 63–84; TEMP 37–37.3; O2SAT 93–98; Ht 165.1 cm; Wt 72.2 kg
[2017-11-12] MEDS: AMPICILLIN/SULBACTAM SOD INJ 3,000 MG in SODIUM CHLORIDE 0.9% 100ML 100 ML IV SCH ×4 (02:22→20:05)
[2017-11-12 06:27] LABS: HEMATOCRIT 33.2 % (37-47); HEMOGLOBIN 11.5 g/dL (12.0-16.0); IG# 0.01 K/uL (0.00-0.02); LYMPH % 7.6 %; LYMPH ABS # 0.65 K/uL (1.2-3.4); MEAN CELL VOLUME 94.1 fL (80-100); MEAN CORPUSCULAR HEMOGLOBIN 32.6 pg (25-34); MEAN CORPUSCULAR HGB CONC 34.6 g/dl (32-36); MEAN PLATELET VOLUME 8.9 fL (7.4-10.4); MONO % 6.7 %; MONO ABS # 0.58 K/uL (0.11-0.59); NEUT % 85.6 %; NEUT ABS # 7.36 K/uL (1.4-6.5); PLATELET COUNT 162 K/uL (130-400); RED CELL DISTRIBUTION WIDTH CV 12.8 % (11.5-14.5); RED CELL DISTRIBUTION WIDTH SD 43.6 fL (36.4-46.3)
[2017-11-12 07:01] LABS: CALCIUM 8.8 mg/dl (8.5-10.1); CREATININE 0.58 mg/dl (0.60-1.20); POTASSIUM 3.7 mmol/L (3.5-5.1)
[2017-11-12] MEDS: MoRPHine SULFATE 1 MG/ML 50 ML PCA CASS IV PRN ×3 (07:06→22:28)
[2017-11-12] MEDS: LACTATED RINGER'S 1000ML 1,000 ML IV SCH ×2 (09:28→18:40)
[2017-11-12] MEDS: SODIUM CHLORIDE 0.9% 1000ML 1,000 ML IV SCH (09:28)
[2017-11-12] MEDS: PANTOprazole INJ 40 MG in SYRINGE 0 ML IV SCH (10:41)
--- NOTE | 2017-11-12 14:05 | Surgery Progress Note ---
Surgery Progress Note Date of Service November 12, 2017. Subjective Post OP Day: 2 + feeling well, + ambulating, + pain controlled, No complaints, No chest pain, No SOB, No bowel movement, No flatus, No nausea, No vomiting Objective Vital Signs: Date Time Temp Pulse Resp B/P (MAP) Pulse Ox O2 Delivery O2 Flow Rate FiO2 11/12/17 12:00 37.0 66 18 160/69 (99) 94 Room Air 11/12/17 08:00 93 11/12/17 07:09 37.3 84 18 137/70 (92) 93 Room Air 11/12/17 03:34 37.0 69 16 156/87 (110) 95 Room Air 11/11/17 23:10 37.2 84 16 153/74 (100) 95 Room Air 11/11/17 23:00 Room Air 11/11/17 15:15 Room Air 11/11/17 15:12 37.2 95 17 153/79 (103) 93 Room Air General Appearance: WD/WN, no apparent distress Head: normocephalic, atraumatic Neck: trachea midline Respiratory/Chest: no respiratory distress, no accessory muscle use Abdomen: non distended, soft, no organomegaly, no pulsatile mass, + tenderness (at incision site, appropriate post op) Incision(s): clean, dry (dressing clean and dry) Laboratory Results: Results Past 24 Hours Test 11/12/17 05:59 Range/Units White Blood Count 8.60 4.8-10.8 K/uL Red Blood Count 3.53 4.2-5.4 M/uL Hemoglobin 11.5 12.0-16.0 g/dL Hematocrit 33.2 37-47 % Mean Corpuscular Volume 94.1 80-100 fL Mean Corpuscular Hemoglobin 32.6 25-34 pg Mean Corpuscular Hemoglobin Concent 34.6 32-36 g/dl Platelet Count 162 130-400 K/uL Mean Platelet Volume 8.9 7.4-10.4 fL Neutrophils (%) (Auto) 85.6 % Lymphocytes (%) (Auto) 7.6 % Monocytes (%) (Auto) 6.7 % Eosinophils (%) (Auto) 0.0 % Basophils (%) (Auto) 0.0 % Neutrophils # (Auto) 7.36 1.4-6.5 K/uL Lymphocytes # (Auto) 0.65 1.2-3.4 K/uL Monocytes # (Auto) 0.58 0.11-0.59 K/uL Eosinophils # (Auto) 0.00 0-0.5 K/uL Basophils # (Auto) 0.00 0-0.2 K/uL RDW Standard Deviation 43.6 36.4-46.3 fL RDW Coefficient of Variation 12.8 11.5-14.5 % Immature Granulocyte % (Auto) 0.1 % Immature Granulocyte # (Auto) 0.01 0.00-0.02 K/uL Sodium Level 136 136-145 mmol/L Potassium Level 3.7 3.5-5.1 mmol/L Chloride Level 102 98-107 mmol/L Carbon Dioxide Level 27 21-32 mmol/L Anion Gap 7.0 3-11 mmol/L Blood Urea Nitrogen 7 7-18 mg/dl Creatinine 0.58 0.60-1.20 mg/dl Est Creatinine Clear Calc Drug Dose 97.6 ml/min Estimated GFR () 112.9 Estimated GFR (Non- 97.4 BUN/Creatinine Ratio 11.7 10-20 Random Glucose 89 70-99 mg/dl Calcium Level 8.8 8.5-10.1 mg/dl Assessment & Plan POD # 2 s/p ex lap, distal Right colectomy -vitals stable, afebrile - pain controlled - no return of bowel function Plan: Continue sips, await return of bowel function encourage ambulation and OOB to chair Continue IV fluids, IV pain management prn pain, IV Zofran prn Dr. Chopra has seen and examined pt, agrees with above
[2017-11-13] VITALS (7 sets, daily range): BP systolic 132–157; BP diastolic 66–87; PULSE 59–82; TEMP 36.9–37.1; O2SAT 93–96
[2017-11-13] MEDS: AMPICILLIN/SULBACTAM SOD INJ 3,000 MG in SODIUM CHLORIDE 0.9% 100ML 100 ML IV SCH ×4 (01:40→19:20)
[2017-11-13] MEDS: LACTATED RINGER'S 1000ML 1,000 ML IV SCH (05:26)
[2017-11-13] MEDS: MoRPHine SULFATE 1 MG/ML 50 ML PCA CASS IV PRN ×2 (06:56→18:47)
[2017-11-13 07:09] LABS: BASO % 0.2 %; BASO ABS # 0.01 K/uL (0-0.2); EOS % 0.2 %; EOS ABS # 0.01 K/uL (0-0.5); HEMATOCRIT 31.8 % (37-47); HEMOGLOBIN 11.1 g/dL (12.0-16.0); IG# 0.02 K/uL (0.00-0.02); LYMPH ABS # 0.63 K/uL (1.2-3.4); MEAN CELL VOLUME 94.4 fL (80-100); MEAN CORPUSCULAR HEMOGLOBIN 32.9 pg (25-34); MEAN CORPUSCULAR HGB CONC 34.9 g/dl (32-36); MEAN PLATELET VOLUME 9.3 fL (7.4-10.4); MONO % 7.9 %; NEUT % 81.4 %; NEUT ABS # 5.12 K/uL (1.4-6.5); PLATELET COUNT 171 K/uL (130-400); RED CELL DISTRIBUTION WIDTH CV 12.3 % (11.5-14.5); RED CELL DISTRIBUTION WIDTH SD 42.2 fL (36.4-46.3); WHITE BLOOD COUNT 6.29 K/uL (4.8-10.8)
[2017-11-13 07:42] LABS: CALCIUM 8.7 mg/dl (8.5-10.1); CREATININE 0.51 mg/dl (0.60-1.20); POTASSIUM 3.3 mmol/L (3.5-5.1)
[2017-11-13] MEDS: POTASSIUM CHLR 10 MEQ / WTR 100 ML IV SCH ×2 (10:06→11:33)
[2017-11-13] MEDS: D5W AND 1/2NSS + 20MEQ KCL 1,000 ML IV SCH ×2 (10:06→23:17)
--- NOTE | 2017-11-13 10:38 | Surgery Progress Note ---
Surgery Progress Note Date of Service November 13, 2017. Subjective Post OP Day: 3 (s/p ex lap, right colectomy) + feeling well, + ambulating, + flatus (small amount), + pain controlled, No chest pain, No SOB, No bowel movement, No nausea, No vomiting Objective Vital Signs: Date Time Temp Pulse Resp B/P (MAP) Pulse Ox O2 Delivery O2 Flow Rate FiO2 11/13/17 08:23 94 Room Air 11/13/17 07:50 37.1 62 16 138/78 (98) 94 Room Air 11/13/17 03:18 37.0 67 16 146/66 (92) 96 Room Air 11/12/17 23:15 37.0 63 16 152/67 (95) 98 Room Air 11/12/17 23:00 Room Air 11/12/17 19:38 37.0 80 18 158/72 (100) 95 Room Air 11/12/17 15:28 37.0 77 17 151/77 (101) 94 Room Air 11/12/17 15:00 Room Air 11/12/17 12:00 37.0 66 18 160/69 (99) 94 Room Air General Appearance: WD/WN, no apparent distress Head: normocephalic, atraumatic Neck: trachea midline Respiratory/Chest: no respiratory distress, no accessory muscle use Abdomen: non distended, soft, no organomegaly, no pulsatile mass, + abnormal bowel sounds (hypoactive), + tenderness (at incision site , appropriate post op) Incision(s): clean, dry, intact, no erythema, drainage (some dark blood at the umbilicus) Laboratory Results: Results Past 24 Hours Test 11/13/17 06:42 Range/Units White Blood Count 6.29 4.8-10.8 K/uL Red Blood Count 3.37 4.2-5.4 M/uL Hemoglobin 11.1 12.0-16.0 g/dL Hematocrit 31.8 37-47 % Mean Corpuscular Volume 94.4 80-100 fL Mean Corpuscular Hemoglobin 32.9 25-34 pg Mean Corpuscular Hemoglobin Concent 34.9 32-36 g/dl Platelet Count 171 130-400 K/uL Mean Platelet Volume 9.3 7.4-10.4 fL Neutrophils (%) (Auto) 81.4 % Lymphocytes (%) (Auto) 10.0 % Monocytes (%) (Auto) 7.9 % Eosinophils (%) (Auto) 0.2 % Basophils (%) (Auto) 0.2 % Neutrophils # (Auto) 5.12 1.4-6.5 K/uL Lymphocytes # (Auto) 0.63 1.2-3.4 K/uL Monocytes # (Auto) 0.50 0.11-0.59 K/uL Eosinophils # (Auto) 0.01 0-0.5 K/uL Basophils # (Auto) 0.01 0-0.2 K/uL RDW Standard Deviation 42.2 36.4-46.3 fL RDW Coefficient of Variation 12.3 11.5-14.5 % Immature Granulocyte % (Auto) 0.3 % Immature Granulocyte # (Auto) 0.02 0.00-0.02 K/uL Sodium Level 135 136-145 mmol/L Potassium Level 3.3 3.5-5.1 mmol/L Chloride Level 102 98-107 mmol/L Carbon Dioxide Level 26 21-32 mmol/L Anion Gap 7.0 3-11 mmol/L Blood Urea Nitrogen 15 7-18 mg/dl Creatinine 0.51 0.60-1.20 mg/dl Est Creatinine Clear Calc Drug Dose 111.0 ml/min Estimated GFR () 117.8 Estimated GFR (Non- 101.6 BUN/Creatinine Ratio 28.5 10-20 Random Glucose 67 70-99 mg/dl Calcium Level 8.7 8.5-10.1 mg/dl Assessment & Plan POD # 3 s/p ex lap, distal Right colectomy - vitals stable, afebrile - pain controlled - + flatus - Hypokalemia Plan: May have clear liquids, advised to go slow Abdominal binder for support 20 meq KCL and switch IV fluids to D5w + 1/2 NSS + 20 KCL @ 100 mls/hr encourage ambulation and OOB to chair Continue IV fluids, IV pain management prn pain, IV Zofran prn Once tolerating oral intake will switch to oral pain medication Dr. Chopra has seen pt, agrees with above
[2017-11-13] MEDS: SODIUM CHLORIDE 0.9% 1000ML 1,000 ML IV SCH (10:49)
[2017-11-13] MEDS: PANTOprazole INJ 40 MG in SYRINGE 0 ML IV SCH (11:34)
[2017-11-14] MEDS: AMPICILLIN/SULBACTAM SOD INJ 3,000 MG in SODIUM CHLORIDE 0.9% 100ML 100 ML IV SCH ×2 (01:55→08:47)
[2017-11-14 03:32] VITALS: BP 161/84; PULSE 62; TEMP 36.9; O2SAT 98
[2017-11-14] MEDS: MoRPHine SULFATE 1 MG/ML 50 ML PCA CASS IV PRN (06:59)
[2017-11-14 08:13] VITALS: O2SAT 96
[2017-11-14 08:16] VITALS: BP 156/92; PULSE 74; TEMP 36.9; O2SAT 96
[2017-11-14 08:42] LABS: CALCIUM 8.7 mg/dl (8.5-10.1); CREATININE 0.63 mg/dl (0.60-1.20); POTASSIUM 3.5 mmol/L (3.5-5.1)
[2017-11-14] MEDS: D5W AND 1/2NSS + 20MEQ KCL 1,000 ML IV SCH (09:39)
[2017-11-14] MEDS: SODIUM CHLORIDE 0.9% 1000ML 1,000 ML IV SCH (10:34)
--- NOTE | 2017-11-14 11:13 | Surgery Progress Note ---
Surgery Progress Note Date of Service November 14, 2017. Subjective Post OP Day: 4 (s/p ex lap, right colectomy) + feeling well, + bowel movement (small), + flatus, + pain controlled, + diet ( tolerated clear liquids), No complaints, No chest pain, No SOB, No nausea, No vomiting Objective Vital Signs: Date Time Temp Pulse Resp B/P (MAP) Pulse Ox O2 Delivery O2 Flow Rate FiO2 11/14/17 08:16 36.9 74 16 156/92 (113) 96 Room Air 11/14/17 08:13 96 Room Air 11/14/17 08:00 Room Air 11/14/17 03:32 36.9 62 16 161/84 (109) 98 Room Air 11/13/17 23:00 37.0 67 16 157/87 (110) 96 Room Air 11/13/17 19:15 Room Air 11/13/17 18:31 36.9 82 18 132/77 (95) 93 Room Air 11/13/17 14:49 36.9 59 18 153/76 (101) 95 Room Air 11/13/17 11:51 37.1 60 16 148/78 (101) 96 Room Air General Appearance: WD/WN, no apparent distress Head: normocephalic, atraumatic Neck: trachea midline Respiratory/Chest: no respiratory distress, no accessory muscle use Abdomen: non distended, soft, no organomegaly, no pulsatile mass, + tenderness (at midline incision, appropriate post op) Incision(s): clean, dry (dressing clean and dry) Laboratory Results: Results Past 24 Hours Test 11/14/17 08:10 Range/Units Sodium Level 137 136-145 mmol/L Potassium Level 3.5 3.5-5.1 mmol/L Chloride Level 104 98-107 mmol/L Carbon Dioxide Level 27 21-32 mmol/L Anion Gap 6.0 3-11 mmol/L Blood Urea Nitrogen 6 7-18 mg/dl Creatinine 0.63 0.60-1.20 mg/dl Est Creatinine Clear Calc Drug Dose 89.8 ml/min Estimated GFR () 109.9 Estimated GFR (Non- 94.8 BUN/Creatinine Ratio 10.0 10-20 Random Glucose 117 70-99 mg/dl Calcium Level 8.7 8.5-10.1 mg/dl Assessment & Plan POD # 4 s/p ex lap, distal Right colectomy - vitals stable, afebrile - pain controlled - + flatus and small bowel movement - Hypokalemia resolved Plan: Add Po Percocet as needed for pain, 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 Will consult social media specialist in regards to acquiring hospital bed for home Dr. Chopra has seen pt, agrees with above
[2017-11-14] MEDS ORDERED: OXYCODONE/ACETAMINOPHEN 5-325 TAB PO PRN ×2 (11:15)
[2017-11-14 11:19] VITALS: BP 158/78; PULSE 68; TEMP 37.1; O2SAT 99
[2017-11-14] MEDS ORDERED: OXYC-57 PO (12:57)
--- NOTE | 2017-11-14 13:03 | Discharge Instructions ---
Discharge Instructions Date of Service November 14, 2017. Admission Reason for Admission: Cecal Volvulus Discharge Discharge Diagnosis / Problem: same Discharge Goals Goal(s): Decrease discomfort, Improve function Activity Recommendations Activity Limitations: per Instructions/Follow-up section No heavy lifting over 10 pounds for 6 weeks No strenuous activity until cleared by surgeon No submerging incision underwater for 2 weeks (no bathing, swimming, or hot tubs ) No driving while taking narcotic pain medication or until you are pain free . Instructions / Follow-Up Instructions / Follow-Up You may shower in 2 days. Sponge bath and wash hair in meantime. Keep dressing clean and dry. After 2 days, you may shower and remove dressing. Replace daily. Surgical cheo will be removed in office. Waking and light activity is encouraged to prevent blood clots from forming Wear abdominal binder daily and at night time for support You will be given Tramadol as needed for moderate to severe pain. Take as directed. This medication may cause drowsiness and constipation. To combat constipation: -Take OTC stool softener such as Colace daily - Drink plenty of water daily - avoid foods that constipation (diary products, cheese, etc) - may take gentle laxative or prune juice if needed You may take extra strength Tylenol or Ibuprofen as needed for mild pain. Recommend low fiber diet for about one month from your surgery Follow-up in surgical office in 1-2 weeks, please call office at [phone] to make an appointment Current Hospital Diet Patient's current hospital diet: Full Liquid Diet Discharge Diet Recommended Diet: Low Fiber Diet Procedures Procedures Performed: Exploratory laparotomy with cecum and TI resection Pending Studies Studies pending at discharge: no Medical Emergencies . Who to Call and When: Medical Emergencies: If at any time you feel your situation is an emergency, please call 911 immediately. . Non-Emergent Contact Non-Emergency issues call your: Primary Care Provider, Surgeon Call Non-Emergent contact if: you have a fever, temperature is above 101, your pain is not controlled, your pain is worsening, your pain is unusual for you, wound has increased drainage, wound has increased redness, wound has increased pain . "Provider Documentation" section prepared by Andie Shi. . [place] Drug Monitoring Program Search Results: patient reviewed within database, no issues identified
[2017-11-14 15:15] VITALS: BP 152/82; PULSE 68; TEMP 36.9; O2SAT 97
[2017-11-14] MEDS ORDERED: TRAM-10 PO (16:30)
[2017-11-14] MEDS ORDERED: TRAMADOL HCL 50 MG TAB PO PRN (16:45)
[2017-11-14 17:45] VITALS: BP 152/82; PULSE 68; TEMP 36.9; O2SAT 97
== END 2017-11-14 19:50 | disposition home or self-care (01) | DRG 331 ==
LOC: EDBD 03:10 → C.EDB 03:10 → C.MSW 06:29 → ENRESERV 06:40
PROVIDERS: ADMIT Surgery; ATTEND Surgery
PROC: 0DTB0ZZ Resection of Ileum, Open Approach (ICD-10-PCS; principal; 2017-11-10 07:07)
PROC: 0DTH0ZZ Resection of Cecum, Open Approach (ICD-10-PCS; principal; 2017-11-10 07:07)
DX: K56.2 Volvulus (principal)